=== PATIENT | male | born 1975 | race Caucasian/White ===

== ENCOUNTER → 2017-06-28 | Day surgery (SDC) | payer BC ==
[~2017-06-28] MED LIST: BUPIVACAINE HCL 0.5% INJ 30 ML VIAL INJ ONE; CLINDAMYCIN PHOS 900MG/ D5W 50 50 ML IV ONE; CLONIDINE HCL0.1 MG PO; DEXAMETHASONE SOD PHOS INJ 4 MG/ML VIAL ONE; FENTANYL CITRATE/PF 100MCG/2 ML INJ ONE; LIDOCAINE HCL 2% LOCAL INJ 5 ML SDV VIAL INJ ONE; MIDAZOLAM HCL 2 MG/2 ML VIAL ONE; PROPOFOL IV EMULSION 10 MG/ML 20 ML VIAL ONE; SEVOFLURANE INHAL SOLN 250 ML PEN BTL ONE; ULTRAM50 MG PO
--- OUTSIDE RECORDS SUMMARY | 2017-06-28 05:28 | XMS REPORT | Clinical Summary ---
Author Author [employer] Organization [employer] Address Unknown Phone Unavailable Care Team Providers Care Botanical Technical Officer Name Role Phone Anisa Olmstead MD PCP Allergies Active Allergy Reactions Severity Noted Date Comments Penicillins 10/11/2011 Current Medications Prescription Sig. Disp. Refills Start End Date Status Date traMADol (ULTRAM) 50 mg Take 50 mg by mouth every Active tablet 6 (six) hours as needed for moderate pain. gauxyuy-qxlzchksoyxyw-rcx Take 1 tablet by mouth Active feine (EXCEDRIN MIGRAINE) every 6 (six) hours as 250-250-65 mg per tablet needed for headaches. ibuprofen (ADVIL,MOTRIN) Take 200 mg by mouth Active 200 MG tablet every 6 (six) hours as needed for mild pain. naproxen sodium (ALEVE) Take 480 mg by mouth as Active 220 MG tablet needed for mild pain. multivitamin with Take 1 tablet by mouth Active minerals tablet daily. 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 Abstract Neurosurgery Flory Espinoza LVN 04/10/2017 Hospital Radiology Anisa Olmstead MD Encounter 04/10/2017 Procedure Pass Radiology 04/10/2017 Ancillary Radiology Anisa Olmstead MD Orders 03/20/2017 Hospital Radiology Anisa Olmstead MD Weakness Encounter 03/20/2017 Hospital Radiology Anisa Olmstead MD Weakness Encounter 03/20/2017 Ancillary Radiology Anisa Olmstead MD Weakness Orders 03/17/2017 Hospital Radiology Anisa Olmstead MD Migraine-cluster headache Encounter syndrome; Weakness; Memory loss 03/17/2017 Hospital Radiology Anisa Olmstead MD Weakness Encounter 03/14/2017 Procedure Pass Radiology 03/14/2017 Procedure Pass Radiology 03/14/2017 Procedure Pass Radiology 03/14/2017 Procedure Pass Radiology 03/10/2017 Transcribe Access Anisa Olmstead MD Weakness (Primary Dx); Orders Migraine-cluster headache syndrome; Memory loss after 06/27/2016 Family History Medical History Relation Name Comments Cerebral palsy Brother Arthritis Father Cancer Father Diabetes Father Hypertension Father ALS Maternal Grandmother Cancer Maternal Grandmother Heart disease Maternal Grandmother Arthritis Mother Cancer Mother Heart disease Mother Hypertension Mother Cancer Paternal Grandmother Relation Name Status Comments Brother Father Maternal Grandmother Mother Paternal Grandmother Social History Tobacco Use Types Packs/Day Years Used Date Former Smoker Smokeless Tobacco: Never Used Alcohol Use Drinks/Week oz/Week Comments No Sex Assigned at Date Recorded Not on file Last Filed Vital Signs Vital Sign Reading Time Taken Blood Pressure 136/80 05/16/2017 2:16 PM [facility]OST[facility] Pulse 87 05/16/2017 2:16 PM [facility] Temperature - - Respiratory Rate - - Oxygen Saturation - - Inhaled Oxygen - - Concentration Weight 74.2 kg (163 lb 9.6 oz) 05/16/2017 2:16 PM [facility]ESS Height 181.6 cm (5' 11.5") 05/16/2017 2:16 PM HOST[facility]HOSTESS Body Mass Index 22.5 05/16/2017 2:16 PM HOST/HOSTESS Plan of Treatment Health Maintenance Due Date Last Done Comments INFLUENZA VACCINE 11/01/2016 Results * MRI Lumbar Spine W Wo Contrast (03/20/2017 7:31 PM) Specimen Performing Laboratory [facility] [address] [place] [address] Narrative EXAMINATION: MRI LUMBAR SPINE W WO CONTRAST CLINICAL HISTORY: R53.1 Weakness, weakness COMPARISON:None TECHNIQUE: Multiplanar multisequence contrast enhanced examination was performed of the Lumbar spine. FINDINGS: Vertebral bodies are normal in signal and morphology. No infection, neoplasm, or fracture. Paravertebral and paraspinous soft tissues are normal. The cord terminates at T12-L1. The inferior cord is normal in appearance. There is a 5 mm enhancing intrathecal nodule intimately associated with the cauda equina at the L2 level. Otherwise, the intrathecal spaces are normal. No abnormal intramedullary enhancement. No epidural mass or collection. Degenerative changes: There is a degenerative disc desiccation at L5-S1. Left subarticular disc protrusion narrows the lateral recess, contacting and possibly compressing the traversing S1 nerve root within the lateral recess (see image 8 of series 3. The axial T2 sequences do not extend through this level). Otherwise no degenerative change. IMPRESSION: 1. 5 mm intrathecal enhancing nodule which is associated with the cauda equina at L2. Most likely, this represents a small nerve sheath tumor or ependymoma although other considerations are not excluded. 2. Degenerative changes L5-S1 including left subarticular disc protrusion, contacting and probably compressing the left S1 nerve root. [id number] Procedure Note Hm Interface, Radiology Results Incoming - 03/20/2017 8:03 PM HOST[facility]HOSTESS EXAMINATION: MRI LUMBAR SPINE W WO CONTRAST CLINICAL HISTORY: R53.1 Weakness, weakness COMPARISON: None TECHNIQUE: Multiplanar multisequence contrast enhanced examination was performed of the Lumbar spine. FINDINGS: Vertebral bodies are normal in signal and morphology. No infection, neoplasm, or fracture. Paravertebral and paraspinous soft tissues are normal. The cord terminates at T12-L1. The inferior cord is normal in appearance. There is a 5 mm enhancing intrathecal nodule intimately associated with the cauda equina at the L2 level. Otherwise, the intrathecal spaces are normal. No abnormal intramedullary enhancement. No epidural mass or collection. Degenerative changes: There is a degenerative disc desiccation at L5-S1. Left subarticular disc protrusion narrows the lateral recess, contacting and possibly compressing the traversing S1 nerve root within the lateral recess (see image 8 of series 3. The axial T2 sequences do not extend through this level). Otherwise no degenerative change. IMPRESSION: 1. 5 mm intrathecal enhancing nodule which is associated with the cauda equina at L2. Most likely, this represents a small nerve sheath tumor or ependymoma although other considerations are not excluded. 2. Degenerative changes L5-S1 including left subarticular disc protrusion, contacting and probably compressing the left S1 nerve root. [facility]-[id number] * MRI Thoracic Spine W Wo Contrast (03/20/2017 7:28 PM) Specimen Performing Laboratory [address] [address] Narrative EXAMINATION: MRI THORACIC SPINE W WO CONTRAST CLINICAL HISTORY: R53.1 Weakness, weakness COMPARISON:None TECHNIQUE: Multiplanar MRI of the thoracic spine with and without contrast FINDINGS: Vertebral bodies are normal in signal and morphology. No infection, neoplasm, or acute fracture. Alignment is preserved. Cord is normal in signal and morphology. No abnormal enhancement. Intrathecal and epidural spaces are normal. Paraspinous and paravertebral soft tissues are normal. Discs are preserved. No posterior disc disease. No significant facet disease. No foraminal or central stenosis. IMPRESSION: No significant thoracic abnormality. [facility]-[id number] Procedure Note Interface, Radiology Results Incoming - 03/20/2017 7:54 PM HOST/HOSTESS EXAMINATION: MRI THORACIC SPINE W WO CONTRAST CLINICAL HISTORY: R53.1 Weakness, weakness COMPARISON: None TECHNIQUE: Multiplanar MRI of the thoracic spine with and without contrast FINDINGS: Vertebral bodies are normal in signal and morphology. No infection, neoplasm, or acute fracture. Alignment is preserved. Cord is normal in signal and morphology. No abnormal enhancement. Intrathecal and epidural spaces are normal. Paraspinous and paravertebral soft tissues are normal. Discs are preserved. No posterior disc disease. No significant facet disease. No foraminal or central stenosis. IMPRESSION: No significant thoracic abnormality. [id number] * MRI Brain W Wo Contrast (03/17/2017 7:09 PM) Specimen Performing Laboratory [facility] [address] [place] [address] Narrative EXAMINATION:MRI BRAIN W WO CONTRAST CLINICAL HISTORY:G44.009 Cluster headache syndromeunspecifiednot intractable, R53.1 Weakness, migraine roberts COMPARISON:None. TECHNIQUE: Multiplanar MRI imaging with and without IV Gadolinium was performed. FINDINGS: There are scattered bilateral frontoparietal white matter nonspecific punctate T2 hyperintensities.There is no evidence of acute infarction, hemorrhage, mass lesion, or midline shift. Ventricles, sulci, and cisterns are age-appropriate in size and configuration. There is no extra-axial fluid collection. Flow voids of the major intracranial vessels are intact. The postcontrast images demonstrates no evidence of abnormal brain parenchymal enhancement or leptomeningeal disease. Visualized paranasal sinuses and mastoid air cells are clear. Bones, orbits, and soft tissues are unremarkable. IMPRESSION: No acute intracranial abnormality. Nonspecific scattered frontoparietal bilateral white matter punctate foci of increased T2 and FLAIR signal. Clinical correlation for vascular risk factors is recommended. Also these findings are occasionally associated with migraine headaches with aura. Demyelinating diseases is thought to be less likely. [facility]-[id number] Procedure Note Interface, Radiology Results Incoming - 03/17/2017 8:32 PM HOST/HOSTESS EXAMINATION: MRI BRAIN W WO CONTRAST CLINICAL HISTORY: G44.009 Cluster headache syndrome unspecified not intractable, R53.1 Weakness, migraine roberts COMPARISON: None. TECHNIQUE: Multiplanar MRI imaging with and without IV Gadolinium was performed. FINDINGS: There are scattered bilateral frontoparietal white matter nonspecific punctate T2 hyperintensities. There is no evidence of acute infarction, hemorrhage, mass lesion, or midline shift. Ventricles, sulci, and cisterns are age-appropriate in size and configuration. There is no extra-axial fluid collection. Flow voids of the major intracranial vessels are intact. The postcontrast images demonstrates no evidence of abnormal brain parenchymal enhancement or leptomeningeal disease. Visualized paranasal sinuses and mastoid air cells are clear. Bones, orbits, and soft tissues are unremarkable. IMPRESSION: No acute intracranial abnormality. Nonspecific scattered frontoparietal bilateral white matter punctate foci of increased T2 and FLAIR signal. Clinical correlation for vascular risk factors is recommended. Also these findings are occasionally associated with migraine headaches with aura. Demyelinating diseases is thought to be less likely. [id number] * MRI Cervical Spine W Wo Contrast (03/17/2017 7:02 PM) Specimen Performing Laboratory [facility] [address] [place] [id number] Narrative EXAMINATION:MRI CERVICAL SPINE W WO CONTRAST CLINICAL HISTORY:R53.1 Weakness, weakness COMPARISON:None. TECHNIQUE: Multiplanar MRI imaging with and without IV Gadolinium was performed. FINDINGS: There is normal cervical lordosis and alignment.The vertebral bodies are preserved. Bone marrow is unremarkable with no evidence of acute fracture or suspicious marrow-replacing lesion. Intervertebral disc spaces are relatively preserved.The spinal cord and posterior fossa are normal in signal. The postcontrast images demonstrates no evidence of abnormal enhancement in the cord or the spinal elements. There is normal flow signal in both cervical vertebral arteries. C2-3: Unremarkable C3-4: Unremarkable C4-5: Unremarkable C5-6: Unremarkable C6-7: Unremarkable C7-T1: Unremarkable Visualized neck soft tissues are unremarkable. IMPRESSION: Unremarkable cervical spinal MRI with no significant spinal canal or neural foraminal stenosis. [facility]-[id number] Procedure Note [facility], Radiology Results Incoming - 03/17/2017 8:58 PM HOST/HOSTESS EXAMINATION: MRI CERVICAL SPINE W WO CONTRAST CLINICAL HISTORY: R53.1 Weakness, weakness COMPARISON: None. TECHNIQUE: Multiplanar MRI imaging with and without IV Gadolinium was performed. FINDINGS: There is normal cervical lordosis and alignment. The vertebral bodies are preserved. Bone marrow is unremarkable with no evidence of acute fracture or suspicious marrow-replacing lesion. Intervertebral disc spaces are relatively preserved. The spinal cord and posterior fossa are normal in signal. The postcontrast images demonstrates no evidence of abnormal enhancement in the cord or the spinal elements. There is normal flow signal in both cervical vertebral arteries. C2-3: Unremarkable C3-4: Unremarkable C4-5: Unremarkable C5-6: Unremarkable C6-7: Unremarkable C7-T1: Unremarkable Visualized neck soft tissues are unremarkable. IMPRESSION: Unremarkable cervical spinal MRI with no significant spinal canal or neural foraminal stenosis. [facility]-[id number] after 06/27/2016 Insurance Payer Benefit Subscriber ID Type Phone Address Plan / Group JANNA PINZON xxxxxxxxxxxx [facility] Home: [address] [place] [id number]
--- NOTE | 2017-06-29 08:43 | Operative Report ---
DATE OF PROCEDURE: June 28, 2017 PREOPERATIVE DIAGNOSIS: Right long finger trigger. POSTOPERATIVE DIAGNOSIS: Right long finger trigger. OPERATION/PROCEDURE PERFORMED: Patient underwent a right long finger trigger release. SPRAY II PAINTER: None. ANESTHESIA: General endotracheal intubation anesthesia. IV FLUIDS: Per the anesthesia record. BRIEF DESCRIPTION OF THE PATIENT'S OPERATIVE PROCEDURE: Mr. Macedo was taken to the operating room and placed in the supine position on the operating room table. Following induction of general anesthesia, as well as endotracheal intubation, the patient's right upper extremity was examined under anesthesia. The patient was found to have a locked right long finger trigger. Gentle extension of the right long finger allowed for placement of the finger in a neutral position. The patient's upper extremity was prepped and draped in a standard surgical fashion. The case was begun by creating an incision overlying the palpable nodule in the hand. This was somewhat situation intermediate between the A1 and A2 real. This incision was carried through skin only. Blunt dissection was used deepen the incision, and the real system was identified. The real was divided in line with the skin incision, and then proximally and distally to gain full motion of the finger without catching or locking. The finger was placed through motion and there was no catching or locking. There was no injury to the tendon. There were no other gross abnormalities. There was no further catching or locking. This wound was copiously irrigated and closed in a single layer fashion. Sterile dressings were applied. The patient was awakened and taken to the postanesthesia care in stable condition. Job#: [id number] FAYE
== END | disposition home or self-care (01) ==
LOC: OR 05:26
PROVIDERS: ATTEND Specialist
DX: M65.331 Trigger finger, right middle finger (principal); M79.7 Fibromyalgia; G62.9 Polyneuropathy, unspecified; J45.909 Unspecified asthma, uncomplicated; N20.0 Calculus of kidney; R00.1 Bradycardia, unspecified; Z01.810 Encounter for preprocedural cardiovascular examination; Z87.891 Personal history of nicotine dependence
CPT/HCPCS: 26055; 93005; J1100; J2001; J2250

== ENCOUNTER → 2022-05-18 | Day surgery (SDC) | payer BC, MEDICARE ==
[~2022-05-18] MED LIST changes: +AMLODIPINE BESY10 MG PO; +BENADRYL25 M1 PO; +BUPIVACAINE HCL 0.5% 10ML MPF VIAL INJ ONE; -BUPIVACAINE HCL 0.5% INJ 30 ML VIAL INJ ONE; -CLINDAMYCIN PHOS 900MG/ D5W 50 50 ML IV ONE; +DEXAMETHASONE SOD PHOS INJ 4 MG/ML SDV ONE; -DEXAMETHASONE SOD PHOS INJ 4 MG/ML VIAL ONE; -FENTANYL CITRATE/PF 100MCG/2 ML INJ ONE; +HAIR, SKIN & N1 EACH PO; +HYDROCODONE/APAP 5MG-325MG TAB ONE; +LIDOCAINE HCL 1% 2 ML AMP ONE; +LIDOCAINE HCL 1% LOCAL INJ 20 ML VIAL ONE; +LOSARTAN-HCTZ1 EAC2 PO; -MIDAZOLAM HCL 2 MG/2 ML VIAL ONE; +ONDANSETRON HCL INJ 2MG/ML 2ML 2 MG/ML VIAL ONE; +OXYBUTYNIN CHLOR5 MG PO; +POVIDONE IODINE 0.05% 0.05 % ML PO ONE; +PROPOFOL IV EMULSION 50 ML IV ONE; -SEVOFLURANE INHAL SOLN 250 ML PEN BTL ONE; +TIZANIDINE HCL4 M1 PO; +TYLENOL #3 PO
[2022-05-18 08:45] VITALS: BP 98/69
== END | disposition home or self-care (01) ==
LOC: OR 05:48
PROVIDERS: ATTEND Orthopaedic Surgery
DX: M65.332 Trigger finger, left middle finger (principal); G62.9 Polyneuropathy, unspecified; I10 Essential (primary) hypertension; J45.909 Unspecified asthma, uncomplicated; E78.5 Hyperlipidemia, unspecified; Z88.0 Allergy status to penicillin; Z99.3 Dependence on wheelchair; Z01.810 Encounter for preprocedural cardiovascular examination; Z79.899 Other long term (current) drug therapy
CPT/HCPCS: 26055; 93005; J1100; J2001 ×2; J2405; J2704 ×2